=== PATIENT | male | born 1985 | race Two or more races ===

== ENCOUNTER 2022-11-11 04:48 | Emergency (ER) | payer OTHER ==
[~2022-11-11] VITALS: Ht 170.2 cm; Wt 131.0 kg
[2022-11-11] MEDS ORDERED: KETOROLAC TROMETH 30 MG/ML 1ML VIAL IV ONE (07:00)
[2022-11-11] MEDS ORDERED: ONDANSETRON HCL 4 MG/2 ML VIAL IV ONE (08:15)
[2022-11-11] MEDS ORDERED: MORPHINE SULFATE INJ 2 MG/ml SYRG IV ONE (08:15)
[2022-11-11] MEDS ORDERED: TAM04C PO (08:46)
[2022-11-11] MEDS ORDERED: PRED20TA2 PO (08:46)
[2022-11-11 08:56] VITALS: BP 152/101
== END 2022-11-11 08:58 | disposition home or self-care (01) ==
LOC: EDBD 04:48 → ER 04:48
DX: M54.42 Lumbago with sciatica, left side (principal); N20.0 Calculus of kidney; G89.29 Other chronic pain; I10 Essential (primary) hypertension
CPT/HCPCS: 72131; 96374; 96375; 99285; J1885; J2270; J2405